=== PATIENT | female | born 1965 | race Caucasian/White ===

== ENCOUNTER → 2023-11-27 08:23 | Outpatient (REF) | payer OTHER, SELFPAY | LOC: WDC 08:23 | PROVIDERS: ATTENDING PHYSICIAN Family Medicine | DX: Z12.31 Encounter for screening mammogram for malignant neoplasm of breast (principal) | CPT/HCPCS: 77063; 77067 ==

== ENCOUNTER → 2024-01-14 18:00 | Outpatient (REF) | payer OTHER, SELFPAY ==
--- NOTE | 2023-12-20 08:32 | PN.DIAED02 ---
Referral
DSME Class Series Code: [id number]
Referred For: Diabetes Self-Management Training, Medical Nutrition Therapy, Self-Blood Glucose Monitoring, Long-Term Complication Instruction, Accute Complication Instruction, Disease Management
PHI Release Authorization Form Signed: Yes
Patient Problems:
Current Active Problems
Problem Status Onset
Type 2 diabetes mellitus without complications ~09/06/23
Demographic
(1) Type 2 diabetes mellitus without complications
Status: Acute Onset Date: ~09/06/23
Qualifiers:
Diabetes mellitus intermediate frame tender insulin use: without penitentiary use Qualified Code(s): E11.9 - Type 2 diabetes mellitus without complications
Code(s): E11.9 - Type 2 diabetes mellitus without complications
Patient's primary language-: Samoan
Education: High school/GED
Occupation: Professional
Hours Worked/Week: 20-40
Shift: Day
- Social
Primary Support Person: Self
Primary Care Takers: Self
Living Arrangements: Self & spouse
- Learning Methods
Preferred Method: Lecture/audio, Hands-on demonstration, Video
Barriers to Learning: None
Glycemic Control
- Blood Glucose Monitoring Assessment
Blood glucose monitoring at home: Yes
Monitor Brands: Freestyle (Shaun 3)
Frequency: >4x per day (Has CGM- Shaun 3)
Time: fasting, before breakfast, before lunch, before dinner, after dinner
Patient uses Alternate Site Testing: No
Patient instructed on Use and Limitation: No
- Blood Glucose Monitoring Results
Source: self-report
- Hemoglobin A1c
Date: 09/06/23
A1C Percentage (%): 6.7
Medical History of Diabetes
Family Diabetes History: Father, Grandmother (Maternal )
Previous Diabetes Education: No
Previous visit with Dietitian: No
Complications/Comorbidity/Specialist: Hypertension, Neuropathy
Measures
- Anthropometrics
Height: 5 ft 2 in
- Blood Pressure / Pulse
Blood pressure: 152/84
Pulse: 61
- Diabetes Management
Medical Management for Diabetes: Complete physical exam (08/01/2023), Dental exam (09/04/2023), Dilated eye exam (12/28/2023)
Self-Care
- Tobacco Usage
Do you now, or have you ever smoked?: Never smoked
- Alcohol & Drugs Usage
Drinks Alcohol: No
Uses Recreational Drugs: No
- Meals & Dining
Meals & Dining: Patient skips meals: No, Food Intolerance / Allergy: No, Cultural / Protestant Dietary Needs: No
Primary Food Bailer Tenders Supervisor: Self
Primary Pictures Editor: Self
Dining Out Frequency: 1-3x per week
- Physical Activity
Physical Limitation: No
Patient participates in physical Activity: No
- Self Foot-Care
Performs Self Foot-Exam: Yes
Frequency: Daily
- Patient-Self Assessment
Diabetes Knowledge: Fair
Feelings About Diabetes: Acceptance
General Health: Fair
Importance of Health: Extremely
Stress Level: Medium
Diabetes Interferes With:: Nothing
Barriers to Diabetes Management: Nothing
Depression Survey Score: 3
- Diabetes Identification
Carries Diabetes Identification: No
Diabetes Identification Information Provided: No
Care Plan
- Education Needs
Patient Education Needs: Diabetes disease process, Chronic complications, Acute complications, Monitoring, Psychosocial Adjustment, Nutritional management, Goal setting & problem solving
Recommended Diabetes Training Program based on assessment: Outpatient Diabetes Education Program
- Plan of Care
Plan of Care:
Met with Ms. Alan today for registration and initiation of Diabetes Self-management. Pt was recommended by her PCP due to uncontrolled Diabetes, A1C of 6.7% that was noted on recent blood work in early March. Patient reports that she was started
on Metformin 500mg twice a day 2 months ago and is having some GI SE. Twila encouraged to contact her PCP to have her MFM changed to ER. She has a CGM-Shaun 3 and has been consistent with monitoring her blood sugars.
Pt states that she does not exercise, due to lack of motivation and laziness. Twila was counseled with emphasis on need to adhere to an intensive lifestyle modification that includes healthy eating, exercising and monitoring blood glucose twice a
day. We spent a good amount of time discussing dietary choices, carbohydrate counting and importance of Physical activity. Goals for physical activity were established; Pt will start walking for 30 mins 5 times/week after lunch.
--- NOTE | 2023-12-20 11:04 | PN.DIAED04 ---
Education Record
- Education Record
Class Attended: Other (Pre-Registration for DSME Classes)
DSME Class Series Code: [id number]
Instructor: Nurse Practitioner (NARENDRA Burgess)
Class Length (mins): 30
Pre-Program Knowledge: No knowledge
Pre-Test Score (%): 50
Goals
- Goal 1
Being Active: Exercise 30 minutes-5 times per week
Goals To Be Evaluated: Exercise 30 mins-5x/week
- Goal 2
Healthy Eating: Make better food choices, Follow meal plan, Reduce portion sizes
Goals To Be Evaluated: Make better food choices. Follow meal plan. Reduce portion sizes
- Goal 3
Monitoring: Follow monitoring schedule
Goals To Be Evaluated: Follow monitoring times
== END ==
LOC: DES 18:00
PROVIDERS: ATTENDING PHYSICIAN Family Medicine
DX: E11.9 Type 2 diabetes mellitus without complications (principal)
CPT/HCPCS: 99078

== ENCOUNTER → 2024-01-21 18:00 | Outpatient (REF) | payer OTHER, SELFPAY | LOC: DES 18:00 | PROVIDERS: ATTENDING PHYSICIAN Family Medicine | DX: E11.9 Type 2 diabetes mellitus without complications (principal) | CPT/HCPCS: 99078 ==

== ENCOUNTER → 2024-01-28 18:00 | Outpatient (REF) | payer OTHER, SELFPAY | LOC: DES 18:00 | PROVIDERS: ATTENDING PHYSICIAN Family Medicine | DX: E11.9 Type 2 diabetes mellitus without complications (principal) | CPT/HCPCS: 99078 ==

== ENCOUNTER → 2024-02-11 12:33 | Outpatient (REF) | payer OTHER, SELFPAY | LOC: DES 12:33 | PROVIDERS: ATTENDING PHYSICIAN Family Medicine | DX: E11.9 Type 2 diabetes mellitus without complications (principal) | CPT/HCPCS: 99078 ==

== ENCOUNTER → 2024-03-20 07:21 | Outpatient (REF) | payer OTHER, SELFPAY | LOC: HWRAD 07:21 | PROVIDERS: ATTENDING PHYSICIAN Internal Medicine Gastroenterology; FAMILY PHYSICIAN Family Medicine | DX: K82.4 Cholesterolosis of gallbladder (principal) | CPT/HCPCS: 76700 ==

== ENCOUNTER → 2024-03-28 15:03 | Outpatient (REF) | payer OTHER, SELFPAY | LOC: RCS 15:03 | PROVIDERS: ATTENDING PHYSICIAN Internal Medicine Cardiovascular Disease; FAMILY PHYSICIAN Family Medicine | DX: R00.2 Palpitations (principal); I49.3 Ventricular premature depolarization | CPT/HCPCS: 93017 ==

== ENCOUNTER 2024-06-28 23:15 | Emergency (ER) | payer OTHER, SELFPAY ==
[2024-06-28 23:17] VITALS: BP 196/116
[2024-06-28] MEDS: BENADRYL 50 MG PO (23:23)
[2024-06-29 01:56] VITALS: BP 169/82; BMI 34.3
[2024-06-29 02:00] VITALS: BP 165/77
--- NOTE | 2024-06-29 03:39 | ED.GENMED ---
History of Present Illness
General
Chief Complaint: Skin Problem
Source: patient
Exam Limitations: none
Time Seen by Provider: 06/29/24 03:29
Nursing documentation reviewed up to this point in time: agreed with
History of Present Illness
History of Present Illness:
59-year-old female presents with a rash that is been present since Sunday. She has been taking Zyrtec and been drinking a turmeric based drink. She developed this rash. She got to the emergency department and had Benadryl and the rash resolved.
Patient has a 'bad' tooth in her right molar under the crown. She is scheduled to have the tooth pulled on July 15. She has not been started on any antibiotic she is not sure if that is causing an issue. Patient denies chest pain or shortness of
breath. Reports no fevers, chills, nausea or vomiting. Is diabetic but takes her blood sugars regularly.
Past History
Past History
ED Past Medical History: GERD, HTN and Psychiatric
ED Past Surgical History: Appendectomy
Social History
Tobacco: Non-smoker
Living: with family
Employment: Employed
Review of Systems
Review of Systems
Allergies reviewed?: Yes
All Other Systems: ROS reviewed and negative except as documented in HPI and ROS
Constitutional: Reports no symptoms
EENT: Reports no symptoms
Respiratory: Reports no symptoms
Cardiac: Reports no symptoms
ABD/GI: Reports no symptoms
: Reports no symptoms
Musculoskeletal: Reports no symptoms
Skin: Reports no symptoms
Neurological: Reports no symptoms
Endocrine: Reports no symptoms
Hematologic/Lymphatic: Reports no symptoms
Psychiatric: Reports anxiety
Phy Exam
General Physical Exam
General Presentation: well appearing and no apparent distress
General Skin: warm
General Habitus: normal
General Mental: alert
General Hydration: appears well hydrated
ENT Exam
ENT Exam: EOMI, pharynx normal and swallowing well
Additional ENT: Dentition is intact. There is a In the bottom right front molar. No signs
Eye Exam
Eye Exam: PERRL, cornea clear and conjunctiva normal
Cardiovascular Exam
Cardiovascular Exam: regular rate/rhythm, no edema, no murmur and normal peripheral pulses
Pulmonary Exam
Pulmonary Exam: lungs clear, no respiratory distress, no rales, no crackles, no rhonchi, no stridor, no wheezing and no cough
Gastrointestinal Exam
Gastrointestinal Exam: normal bowel sounds, non tender, soft, no organomegaly, no pulsatile mass and non distended
Neurological Exam
Neurological Exam: alert, oriented x3, no motor deficits and speech normal
Musculoskeletal Exam
Musculoskeletal Exam: full ROM and no edema
Skin Exam
Skin Exam: warm/dry and other (Remnants of urticaria. There is faint redness.)
Psychiatric Exam
Psychiatric Exam: normal mood/affect
Course
Orders/Labs/Results
Orders:
Orders
06/28/24 23:22
Diphenhydramine [Benadryl] 50 mg .ROUTE .STK-MED ONE
Diphenhydramine [Benadryl] 50 mg PO NOW STA
06/29/24 03:41
Amoxicillin [Amoxil] 1,000 mg PO NOW STA
Dexamethasone Pf [Decadron] 10 mg PO NOW STA
Vital Signs
Initial and Last Documented VS:
Initial Vital Signs
Temp Pulse Resp BP Pulse Ox
97.8 F 60 20 196/116 98
06/28/24 23:17 06/28/24 23:17 06/28/24 23:17 06/28/24 23:17 06/28/24 23:17
Last Documented Vital Signs
Temp Pulse Resp BP Pulse Ox
97.8 F 64 20 179/91 99
06/28/24 23:17 06/29/24 02:49 06/28/24 23:17 06/29/24 04:04 06/29/24 04:34
*Critical Care Note
Total Time (30-74mins, 75-104mins- exclusive of procedures): Not Applicable
ED Attending Note
-
Portions of this chart may have been created with voice recognition software.� Occasional wrong word or��sound alike� substitutions may have occurred due to the inherent limitations of voice recognition software.
Discharge Plan
Departure
Patient Disposition: Home (Routine Discharge)
Date of Disposition: 06/29/24
Time of Disposition: 04:03
Patient with high blood pressure during this ER visit?: Yes
Discharge Problem:
Allergic reaction, Dental infection
Instructions: Skin Rash (DC), Allergic reaction - ED discharge instructions, BLOOD PRESSURE
Prescriptions:
New
amoxicillin 500 mg capsule
1,000 mg PO Q12H 10 Days Qty: 40 0RF
diphenhydramine HCl [Benadryl] 25 mg capsule
25 mg PO TID PRN (Reason: allergy symptoms) Qty: 14 0RF
epinephrine 0.3 mg/0.3 mL auto-injector
0.3 ml IM Q5-15M PRN (Reason: anaphylaxis) Qty: 2 0RF
No Action
paroxetine HCl 20 MG tablet
20 mg PO DAILY
esomeprazole magnesium [Nexium] 40 MG capsule,delayed release(DR/EC)
40 mg PO DAILY
lisinopril 10 MG tablet
10 mg PO HS
hydrochlorothiazide 12.5 MG tablet
12.5 mg PO DAILY
diazepam 2 MG tablet
2 mg PO TIDPRN PRN (Reason: vertigo) Qty: 12 0RF
ondansetron 4 MG tablet,disintegrating
4 mg PO TIDPRN PRN (Reason: nausea/vomiting) Qty: 14 0RF
ciprofloxacin HCl [Cipro] 500 mg tablet
500 mg PO Q12H Qty: 20 0RF
metronidazole 500 mg tablet
500 mg PO Q8H 10 Days Qty: 30 0RF
Referrals:
Kristian,Twila H., MD [Family Provider] -
Alysha Smith DO [Community] -
Activity Restrictions/Additional Instructions:
Please be sure to check your blood sugar more often than usual due to the steroid.
It was a pleasure meeting you and taking part in your care. We hope for your continued healing and wellness.
Please read discharge instructions in their entirety. However, they are for general education and may not describe your exact diagnosis at discharge. Information on your ER visit and medical conditions were discussed with you along with appropriate
follow up information...
If indicated, please take your medications as instructed and indicated on discharge paperwork.
Please schedule a follow up appointment as directed. Call to schedule an appointment
Please return to the emergency department with ANY change in, persisting, or worsening of symptoms. If any of your symptoms do not improve, or persist, or become more severe within 6-12 hours, please return to the emergency department for further
care.
Please return to the emergency department if you develop a headache, neck pain/stiffness, fever greater than 100.4F, chest pain, shortness of breath, persistent nausea, vomiting, slurred speech, difficulty walking, numbness/tingling, weakness, signs
of infection or any other symptoms that are worrisome to you.
If you have any questions or concerns please do not hesitate to call the Hospital at or E-mail me directly at [email or web address]
Interventions
Interventions:
*Risk Screen - Suicide Last Done: 06/28/24 23:17
*General Assessment Last Done: 06/29/24 01:56
*Neglect/Abuse Screening Last Done: 06/28/24 23:17
*ED- Fall Risk Assessment Last Done: 06/29/24 01:56
*ED COVID-19 Vaccine History Last Done: 06/29/24 01:56
*Nursing Disposition Last Done: 06/29/24 04:34
ED-Skin Assessment Last Done: 06/29/24 01:56
Discharge Date and Time
Discharge Date/Time: 06/29/24 04:37
Print Language: JAPANESE
[2024-06-29] MEDS: AMOXIL 1000 MG PO (03:50)
[2024-06-29] MEDS: DECADRON 10 MG PO (03:50)
[2024-06-29 04:04] VITALS: BP 179/91
== END 2024-06-29 04:37 | disposition home or self-care (01) ==
LOC: EMR 23:15
PROVIDERS: EMERGENCY PHYSICIAN Student in an Organized Health Care Education/Training Program; FAMILY PHYSICIAN Family Medicine
DX: T78.40XA Allergy, unspecified, initial encounter (principal); X58.XXXA Exposure to other specified factors, initial encounter; K04.7 Periapical abscess without sinus; I10 Essential (primary) hypertension
CPT/HCPCS: 99283

== ENCOUNTER → 2024-07-24 13:22 | Outpatient (REF) | payer OTHER, SELFPAY | LOC: HWRAD 13:22 | PROVIDERS: ATTENDING PHYSICIAN Student in an Organized Health Care Education/Training Program; FAMILY PHYSICIAN Family Medicine | DX: N95.0 Postmenopausal bleeding (principal) | CPT/HCPCS: 76830; 76856 ==

== ENCOUNTER 2024-11-18 14:52 | Emergency (ER) | payer OTHER, SELFPAY ==
[2024-11-18 15:03] VITALS: BP 215/113
[2024-11-18 15:04] VITALS: BP 189/140
[2024-11-18 15:21] LABS: Hematocrit 41.8 % (37.0-47.0); Hemoglobin 14.4 g/dL (12.0-16.0); Mean Corp Hgb Conc. 34.4 g/dL (33.0-37.0); Mean Corpuscular Volume 87.1 fL (81.0-99.0); Nucleated Red Blood Cells % 0 %; Platelet Count 277 10^3/uL (130-400); Red Cell Dist. Width 11.8 % (11.5-14.5)
[2024-11-18 15:29] LABS: INR 0.99; PT 13.4 Sec (11.4-14.6)
[2024-11-18 15:34] LABS: ALT (SGPT) 23 U/L (0-35); AST (SGOT) 23 U/L (14-36); Albumin 4.7 g/dl (3.5-5.0); Alkaline Phosphatase 66 U/L (38-126); Blood Urea Nitrogen 15 mg/dl (7-17); Calcium 9.8 mg/dl (8.4-10.2); Carbon Dioxide 26 mmol/L (22-30); Chloride 103 mmol/L (98-107); Glucose 141 mg/dl (70-99); Potassium 4.0 mmol/L (3.5-5.1); Sodium 139 mmol/L (135-145); Total Protein 7.7 g/dl (6.3-8.2); eGFR > 60.00
[2024-11-18 15:39] VITALS: BP 152/137
[2024-11-18 15:47] LABS: Troponin I < 0.012 ng/ml
[2024-11-18 16:01] VITALS: BP 177/101
[2024-11-18 16:21] VITALS: BMI 33.5
[2024-11-18 17:44] VITALS: BP 161/90
[2024-11-18 18:00] VITALS: BP 152/82
--- NOTE | 2024-11-18 18:22 | ED.GENMED ---
History of Present Illness
General
Chief Complaint: Cardiac Symptoms
Source: patient
Exam Limitations: none
Time Seen by Provider: 11/18/24 16:17
Nursing documentation reviewed up to this point in time: agreed with
History of Present Illness
History of Present Illness:
Note:
CHIEF COMPLAINT(S)
Back muscle spasm.
HISTORY OF PRESENT ILLNESS
The patient is a 59-year-old female who presented with complaints of a muscle spasm between her back muscles, which began approximately two weeks ago. She described experiencing what felt like a muscle 'tweaking.' This sensation resolved by two days
ago but has since recurred. The patient does not currently have chest pain, although she has experienced discomfort in the same area in the past. The discomfort is somewhat relieved by stretching.
The patients blood pressure has been noted to be elevated, for which she takes amlodipine and losartan. No pain was noted in the abdomen upon examination.
SOCIAL HISTORY
The patient denies smoking, alcohol consumption, or use of recreational drugs.
MEDICATIONS
- Amlodipine (dosage not specified)
- Losartan (dosage not specified)
REVIEW OF SYSTEMS
- Musculoskeletal: Complains of a muscle spasm in the back.
- Cardiovascular: Elevated blood pressure, currently managed with medication.
- General: Reports feeling scared due to symptoms.
PHYSICAL EXAM
General: Alert, no acute distress.
Skin: Warm, dry.
Head: Normocephalic, atraumatic.
Neck: Supple, trachea midline.
Eyes, Ears, Nose, Mouth, and Throat: Oral mucosa moist.
Cardiovascular: Normal peripheral perfusion, no edema.
Respiratory: Respirations are non-labored; lungs are clear bilaterally.
Gastrointestinal: Abdomen soft, non-tender, non-distended, no pulsatile mass.
Back: No specific findings reported.
Musculoskeletal: Normal range of motion, normal strength.
Neurological: Alert and oriented to person, place, time, and situation; no focal neurological deficit observed.
Psychiatric: Cooperative, appropriate mood & affect.
PLAN
A computed tomography scan with contrast is planned to evaluate the aorta, given the patients symptoms and elevated blood pressure. This will help rule out any aortopathy as a cause of symptoms, despite current examinations suggesting a muscular
origin.
DIFFERENTIAL DIAGNOSIS
The Differential Diagnosis includes, in no particular order and is not limited to:
1. Muscular strain or spasm
2. Hypertension-related symptoms
3. Aortic dissection
4. Costochondritis
5. Myocardial ischemia
6. Gastroesophageal reflux disease
7. Pleuritis
8. Anxiety/panic attack
9. Thoracic pathology
10. Vertebral or spinal muscle-related issues
CARE-UPDATE
11/18/24 - 16:29
Patients condition stable; likelihood of acute coronary syndrome (ACS) or pulmonary embolism (PE) considered low. Proceeding with CT angiography to exclude possibility of aortic dissection.
CARE-UPDATE
11/18/24 - 18:24
The patient is a 52-year-old female with upper back pain accompanied by elevated blood pressure and chest discomfort. There are no indications of pulmonary embolism, aortic dissection, or acute coronary syndrome. The symptoms are suspected to be due
to back spasms. A muscle relaxant will be tried to manage the spasms, and the patient will follow up with primary care for a repeat blood pressure check.
EKG
My independent EKG interpretation is:
- Time of EKG: Not specified
- Rhythm: Normal sinus rhythm
- Heart Rate: 75 bpm
- WA Interval: Normal
- QRS Duration: Normal
- QT Interval: Normal
- Viola: Normal
- Abnormalities Observed: None
Disposition:
SUMMARY OF ENCOUNTER
The patient, a 59-year-old female, presented to the emergency department with complaints of muscle spasms in her back, which began approximately two weeks ago. The episode had subsided but recently recurred. There was no chest pain at the time of
the visit, but the patient expressed fear due to her symptoms. Her blood pressure was elevated, managed with amlodipine and losartan. An EKG was conducted, showing a normal sinus rhythm with no abnormalities. A CT scan with contrast was planned to
evaluate the aorta and rule out aortic dissection as a precaution despite findings suggesting a muscular origin.
PLAN
The plan is to perform a CT angiography to assess the aorta, ensuring no aortic dissection is present given the symptoms and hypertension. The patient is to continue medications for blood pressure management and will trial a muscle relaxant for
spasms. She is advised to follow up with her primary care physician for repeat blood pressure checks and potential adjustment of medications. Return precautions were provided, and her condition was stable upon discharge.
PATIENT EDUCATION AND COUNSELING
The patient was informed about the possible muscular origin of her symptoms and the importance of following the prescribed medication regimen. She was advised to do regular stretching exercises to help relieve muscle spasms. It was emphasized that
she should monitor her symptoms and seek immediate care if they worsen or if she experiences chest pain.
FOLLOW-UP INSTRUCTIONS
The patient was advised to follow up with her primary care provider for ongoing management of her hypertension and to repeat blood pressure checks.
MEDICATION RECONCILIATION
- Amlodipine
- Losartan
- Flexeril (prescribed for back muscle spasms)
MEDICAL DECISION MAKING
- Number and Complexity of Problems Addressed: Chronic conditions affecting care include hypertension and recurrent muscle spasms. Differential diagnosis included muscular strain or spasm, hypertension-related symptoms, aortic dissection,
costochondritis, myocardial ischemia, gastroesophageal reflux disease, pleuritis, anxiety/panic attack, thoracic pathology, and vertebral or spinal muscle-related issues.
- Data:
Category 1: The patients outpatient records reviewed for current medications and history of treatment for hypertension.
Category 2: My independent interpretation of the EKG showed normal sinus rhythm with no abnormalities.
- Risk: Prescription medication for muscle spasms was prescribed.
Consideration of Admission/Observation: Escalation of care including admission/observation was considered given the complexity and risk of the patients presenting complaint, exam findings, and their underlying comorbidities. However, ultimately the
patient is safe for outpatient management with close follow-up. Reasoning: Work-up reassuring, does not reveal any acute life/organ-threatening processes, patients symptoms well-controlled upon reevaluation, reexamination is reassuring, vitals are
stable, patient agreeable with discharge, reliable for follow-up.
DIAGNOSIS
- Muscle spasm (ICD-10: M62.830)
- Essential hypertension (ICD-10: I10)
Past History
Past History
ED Past Medical History: GERD, HTN and Psychiatric
ED Past Surgical History: Appendectomy
Social History
Tobacco: Non-smoker
Living: with family
Employment: Employed
Phy Exam
Physical Exam
Physical Exam:
.
Course
Orders/Labs/Results
Orders:
Orders
11/18/24 14:54
EKG [Electrocardiogram (*1)] Urgent
Reason for Study: Chest Pain
EKG- Treatment ONCE
11/18/24 15:11
Complete Blood Count/With Diff Urgent
Comprehensive Metabolic Panel Urgent
Prothrombin Time Urgent
Troponin I Urgent
11/18/24 16:27
CT Chest/abd/pelvis Angio W/wo Urgent
Comment:
Reason For Exam: chest pain, back pain, hypertensive
11/18/24 18:24
Cyclobenzaprine HCl [Flexeril] 10 mg PO NOW STA
Abnormal Lab Results
11/18/24
15:11
Absolute Neuts (auto) 7.0 H 10^3/uL
(1.4-6.5)
Glucose 141 H mg/dl
(70-99)
11/18/24 15:11
11/18/24 15:11
Vital Signs
Initial and Last Documented VS:
Initial Vital Signs
Temp Pulse Ox
99.0 F 97
11/18/24 15:00 11/18/24 15:00
Last Documented Vital Signs
Temp Pulse Resp BP Pulse Ox
99.0 F 66 17 152/82 97
11/18/24 15:00 11/18/24 18:15 11/18/24 18:00 11/18/24 18:00 11/18/24 18:24
*Pulse Oximetry
SaO2: 97
Oxygen Mode of Delivery: Room air
Patient hypoxic: no
*Critical Care Note
Total Time (30-74mins, 75-104mins- exclusive of procedures): Not Applicable
ED Attending Note
-
Portions of this chart may have been created with voice recognition software.� Occasional wrong word or��sound alike� substitutions may have occurred due to the inherent limitations of voice recognition software.
Discharge Plan
Departure
Patient Disposition: Home (Routine Discharge)
Date of Disposition: 11/18/24
Time of Disposition: 18:25
Patient with high blood pressure during this ER visit?: Yes
Condition: Good
Discharge Problem:
Chest pain, Acute upper back pain
Instructions: Chest Pain (DC), Upper Back Pain ED, BLOOD PRESSURE
Prescriptions:
New
cyclobenzaprine 10 mg tablet
10 mg PO TID PRN (Reason: back pain) Qty: 14 0RF
No Action
paroxetine HCl 20 MG tablet
20 mg PO DAILY
esomeprazole magnesium [Nexium] 40 MG capsule,delayed release(DR/EC)
40 mg PO DAILY
lisinopril 10 MG tablet
10 mg PO HS
hydrochlorothiazide 12.5 MG tablet
12.5 mg PO DAILY
diazepam 2 MG tablet
2 mg PO TIDPRN PRN (Reason: vertigo) Qty: 12 0RF
ondansetron 4 MG tablet,disintegrating
4 mg PO TIDPRN PRN (Reason: nausea/vomiting) Qty: 14 0RF
ciprofloxacin HCl [Cipro] 500 mg tablet
500 mg PO Q12H Qty: 20 0RF
metronidazole 500 mg tablet
500 mg PO Q8H 10 Days Qty: 30 0RF
amoxicillin 500 mg capsule
1,000 mg PO Q12H 10 Days Qty: 40 0RF
diphenhydramine HCl [Benadryl] 25 mg capsule
25 mg PO TID PRN (Reason: allergy symptoms) Qty: 14 0RF
epinephrine 0.3 mg/0.3 mL auto-injector
0.3 ml IM Q5-15M PRN (Reason: anaphylaxis) Qty: 2 0RF
Referrals:
Twila Townsend MD [Family Provider, Family Practice] - Call in 1-3 days for appt
Interventions
Interventions:
*Risk Screen - Suicide Last Done: 11/18/24 15:06
*General Assessment Last Done: 11/18/24 15:06
*Neglect/Abuse Screening Last Done: 11/18/24 15:06
*ED COVID-19 Vaccine History Last Done: 11/18/24 15:06
ED- Pulmonary Assessment Last Done: 11/18/24 16:25
ED- Cardiac Assessment Last Done: 11/18/24 16:25
Discharge Date and Time
Print Language: ROMANIAN
[2024-11-18] MEDS: FLEXERIL 10 MG PO (18:42)
== END 2024-11-18 18:51 | disposition home or self-care (01) ==
LOC: EMR 14:52
PROVIDERS: EMERGENCY PHYSICIAN Emergency Medicine; FAMILY PHYSICIAN Family Medicine
DX: R07.9 Chest pain, unspecified (principal); M54.6 Pain in thoracic spine; I10 Essential (primary) hypertension; K21.9 Gastro-esophageal reflux disease without esophagitis
CPT/HCPCS: 99284; 71275; 74174; 80053; 84484; 85025; 85610; 93005; Q9967

== ENCOUNTER → 2024-11-27 07:09 | Outpatient (REF) | payer OTHER, SELFPAY | LOC: WDC 07:09 | PROVIDERS: ATTENDING PHYSICIAN Family Medicine | DX: Z12.31 Encounter for screening mammogram for malignant neoplasm of breast (principal) | CPT/HCPCS: 77063; 77067 ==

== ENCOUNTER → 2025-03-17 07:11 | Outpatient (REF) | payer OTHER, SELFPAY | LOC: RAD 07:11 | PROVIDERS: ATTENDING PHYSICIAN Nurse Practitioner; FAMILY PHYSICIAN Family Medicine | DX: K82.4 Cholesterolosis of gallbladder (principal) | CPT/HCPCS: 76700 ==